=== PATIENT | female | born 1930 | race Caucasian/White ===

== ENCOUNTER 2016-11-01 | Outpatient (CLI) | payer MEDICARE, OTHER | END 2016-11-01 11:46 | disposition critical access hospital (66) | CPT/HCPCS: A0425; A0429 ==

== ENCOUNTER 2016-11-01 12:02 | Inpatient (IN) | payer MEDICARE, OTHER ==
[2016-11-01] MEDS ORDERED: SODIUM CHLORIDE 0.9% 1,000 ML IV ONE (12:31)
[2016-11-01] MEDS ORDERED: FUROSEMIDE 40 MG/4 ML VIAL IVP STA (13:23)
[2016-11-01] MEDS ORDERED: FUROSEMIDE 40 MG/4 ML VIAL ONE (13:36)
[2016-11-01] MEDS ORDERED: cefTRIAXone 1 GM in SODIUM CHLORIDE 0.9% MINIBAG 100 ML IV STA (15:22)
[2016-11-01] MEDS ORDERED: cefTRIAXone 1 GM VIAL ONE (15:47)
[2016-11-01] MEDS ORDERED: METOPROLOL TARTRATE 50 MG TABLET PO STA (16:03)
[2016-11-01] MEDS ORDERED: SODIUM CHLORIDE FLUSH 0.9% 10 ML SYRINGE IVP PRN (16:04)
[2016-11-01] MEDS ORDERED: METOPROLOL 5 MG/5 ML VIAL IVP STA (16:14)
[2016-11-01] MEDS ORDERED: METOPROLOL 5 MG/5 ML VIAL IVP ONE (16:22)
[2016-11-01] MEDS: AZITHROMYCIN INJ 500 MG in SODIUM CHLORIDE 0.9% 250 ML IV SCH (19:08)
[2016-11-01] MEDS: METOPROLOL SUCCINATE 25 MG TABLET PO SCH (20:58)
[2016-11-01] MEDS: SODIUM CHLORIDE FLUSH 0.9% 10 ML SYRINGE IVP SCH (20:58)
[2016-11-01] MEDS: FUROSEMIDE 20 MG TABLET PO SCH (20:58)
[2016-11-01] MEDS: LISINOPRIL 5 MG TABLET PO SCH (20:58)
[2016-11-01] MEDS ORDERED: DABIGATRAN 75 MG CAPSULE PO SCH (21:00)
[2016-11-01] MEDS ORDERED: FUROSEMIDE 20 MG TABLET PO SCH (21:00)
[2016-11-02] MEDS ORDERED: MULTIVITAMIN TABLET PO SCH (08:00)
[2016-11-02] MEDS ORDERED: FUROSEMIDE 40 MG/4 ML VIAL ONE (08:40)
[2016-11-02] MEDS ORDERED: POLYETHYLENE GLYCOL 3350 17 GM PACKET PO SCH (09:00)
[2016-11-02] MEDS ORDERED: cefTRIAXone 1 GM in SODIUM CHLORIDE 0.9% MINIBAG 100 ML IV SCH (09:00)
[2016-11-02] MEDS ORDERED: ENOXAPARIN 40 MG/0.4 ML SYRINGE SUBQ SCH (09:00)
[2016-11-02] MEDS ORDERED: DABIGATRAN 75 MG CAPSULE PO SCH (09:00)
[2016-11-02] MEDS ORDERED: AMIODARONE 200 MG TABLET PO SCH (09:00)
[2016-11-02] MEDS ORDERED: FAMOTIDINE 20 MG TABLET PO SCH (09:00)
[2016-11-02] MEDS ORDERED: LISINOPRIL 5 MG TABLET PO SCH (09:00)
[2016-11-02] MEDS: SODIUM CHLORIDE FLUSH 0.9% 10 ML SYRINGE IVP SCH ×2 (17:37→17:38)
[2016-11-02] MEDS: LISINOPRIL 5 MG TABLET PO SCH ×2 (17:37→21:42)
[2016-11-02] MEDS: METOPROLOL SUCCINATE 25 MG TABLET PO SCH ×2 (17:37→21:43)
[2016-11-02] MEDS: FUROSEMIDE 20 MG TABLET PO SCH ×2 (17:37→21:42)
[2016-11-02] MEDS: AZITHROMYCIN INJ 500 MG in SODIUM CHLORIDE 0.9% 250 ML IV SCH (17:38)
[2016-11-02] MEDS: AMOXICILLIN 250 MG CAPSULE PO SCH (23:44)
[2016-11-03] MEDS: AMOXICILLIN 250 MG CAPSULE PO SCH (05:58)
[2016-11-03] MEDS ORDERED: DOCUSATE SODIUM 250 MG CAPSULE PO SCH (09:00)
[2016-11-03] MEDS ORDERED: SENNA 8.6 MG TABLET PO SCH (09:00)
[2016-11-03] MEDS ORDERED: AZITHROMYCIN 250 MG TABLET PO SCH (09:00)
[2016-11-03] MEDS ORDERED: MORPHINE SOL 10 MG/0.5 ML SYRINGE PO PRN (09:55)
[2016-11-03] MEDS ORDERED: ATROPINE 1% OPHTH DROPS 2 ML EACHEYE ONE (09:56)
[2016-11-03] MEDS ORDERED: ATROPINE 1% OPHTH DROPS 2 ML SL PRN (09:56)
== END 2016-11-03 11:00 | disposition expired | DRG 291 ==
DX: I11.0 Hypertensive heart disease with heart failure (principal); R09.02 Hypoxemia; R60.1 Generalized edema; J81.0 Acute pulmonary edema; J18.9 Pneumonia, unspecified organism; N39.0 Urinary tract infection, site not specified; Z68.1 Body mass index [BMI] 19.9 or less, adult; I10 Essential (primary) hypertension; I49.5 Sick sinus syndrome; I50.9 Heart failure, unspecified; I27.2 Other secondary pulmonary hypertension; I48.91 Unspecified atrial fibrillation; Z95.0 Presence of cardiac pacemaker; E78.5 Hyperlipidemia, unspecified; R63.0 Anorexia; M81.0 Age-related osteoporosis without current pathological fracture; Z79.02 Long term (current) use of antithrombotics/antiplatelets; Z85.3 Personal history of malignant neoplasm of breast; Z79.899 Other long term (current) drug therapy